=== PATIENT | female | born 1970 | race Caucasian/White ===

== ENCOUNTER → 2018-03-29 10:10 | Outpatient (CLI) | payer MEDICAID, SELFPAY ==
[2018-03-29 12:38] LABS: T4 Free Direct 1.37 ng/dL (0.76-1.46); Thyroid Stim Hormone (TSH) 0.51 uIU/mL (0.358-3.74)
== END ==
PROVIDERS: PCP Internal Medicine
DX: E03.9 Hypothyroidism, unspecified (principal)
CPT/HCPCS: 36415; 84439; 84443

== ENCOUNTER → 2018-11-02 13:52 | Outpatient (CLI) | payer MEDICAID, SELFPAY ==
[2018-11-09 11:29] LABS: HPV Reflexed? NOT INDICATED
--- OUTSIDE RECORDS SUMMARY | 2019-01-07 10:49 | XMS RPT_ITS ---
:1970 Author Organization [facility] Care Team Providers Name Role Phone Nancy Gamboa Attending Unavailable АННА BAILEY Attending Unavailable Cecilia Moody Referring Unavailable Primay Care Physicia, No Primary Care Unavailable AKIRA BOWMAN Attending Unavailable PROBLEMS PROBLEMS DATE TYPE CONDITION / CODE ATTENDING STATUS SOURCE 11/02/2018 Unknown Z12.4 - Encounter Nancy Gamboa Active [place] for screening for [facility] neoplasm of Repository cervix / Z12.4(ICD-10) 03/29/2018 Unknown E03.9 - АННА BAILEY Active [place] Hypothyroidism, [facility] unspecified / Hospital E03.9(ICD-10) Repository PROCEDURES PROCEDURES No Procedure Records FoundRESULTS RESULTS PAP I-G W/RFX HRHPV Collected: 11/02/2018 Status: F Source: SID 11:15 AM [facility] REPOSITORY Order Comment: CYTOLOGY INFORMATION: - CLINICAL INFORMATION: - DATE LMP/MENOPAUSE: IUD/NO LMP GIVEN - COLLECTION VIAL: Thin Prep Vial - ASSEMBLER SEMICONDUCTOR SOURCE: CERVICAL/ENDOCERVICAL - COLLECTION TECHNIQUE: BRUSH/SPATULA Specimen Comment: [id number] Specimen Comment: Source.............Cervix;Endocervix Specimen Comment: Other..............IUD Specimen Comment: No. of containers..01 ThinPrep Vial TYPE CODE TESTS RESULT OUT OF RANGE REFERENCE UNITS LAB L7400.0800 . Normal DIAGN Comment Result Comment: NEGATIVE FOR INTRAEPITHELIAL LESION AND MALIGNANCY. THIS SPECIMEN WAS RESCREENED PART OF OUR CUSTOM [employer] PROGRAM. LAB L7400.0900 . Normal ADEQ Comment Result Comment: Satisfactory for evaluation. No endocervical component is identified. LAB L7400.1400 . Normal PERFORM Comment Result Comment: Анна Martinez, [employer] [facility]) LAB L7400.1500 . Normal QC Comment REV Result Comment: Floridalma Craft, Supervisory [employer] [facility] LAB L7400.2575 . Normal TEST METHOD Comment Result Comment: This liquid based ThinPrep(R) pap test was screened with the use of an image guided system. LAB L7400.2600 . Normal . COMM LAB L7400.2700 . Normal PAPSMR Comment Result Comment: The Pap smear is a screening test designed to aid in the detection of premalignant and malignant conditions of the uterine cervix. It is not a diagnostic procedure and should not be used as the sole means of detecting cervical cancer. Both false-positive and false-negative reports do occur. LAB L7400.2800 . Normal HPV RFLX Comment Result Comment: The HPV DNA reflex criteria were not met with this specimen result therefore, no HPV testing was performed. Performed at: [address] [id number] Marketing Communications Leader: Aminta Browne MD, Phone: [phone] Performed By: #### L7400.0350 #### [facility] (refer to report for specific site) refer to report for address and phone number THYROID STIM HORMONE Collected: 03/29/2018 Status: F Source: SID (TSH) 10:19 AM [facility] [place] TYPE CODE TESTS RESULT OUT OF RANGE REFERENCE UNITS LAB L501.9520 0.358-3.74 uIU/mL Normal TSH 0.51 Performed By: #### L501.9520, L506.0400 #### [facility] [address] [place], [place], [address] T4 FREE DIRECT Collected: 03/29/2018 Status: F Source: [place]ID 10:19 AM [facility] [place] TYPE CODE TESTS RESULT OUT OF RANGE REFERENCE UNITS LAB L506.0400 0.76-1.46 ng/dL Normal T4 FREE 1.37 DIRECT Performed By: #### L501.9520, L506.0400 #### [facility] [address] [place], [address] FREE T4 THYROXINE Collected: 01/05/2018 Status: F Source: [place] 11:32 AM [facility] REPOSITORY TYPE CODE TESTS RESULT OUT OF RANGE REFERENCE UNITS LAB FT4 0.61-1.44 ng/dL FREE Normal T4 THYROXINE 1.09 Performed By: #### TSH, FT4 #### [facility] [address] [place] [address] THYROID STIMULATING Collected: 01/05/2018 Status: F Source: [place] HORMO 11:32 [facility] REPOSITORY TYPE CODE TESTS RESULT OUT OF REFERENCE UNITS RANGE LAB TSH 0.34-5.60 uIU/mL Low THYROID STIMULATING HORMO 0.16 Performed By: #### TSH, FT4 #### [facility] [address] [place] [address] ALLERGIES ALLERGIES No Allergies Records FoundENCOUNTERS ENCOUNTERS ADMIT/DISCHARGE ACCOUNT NUMBER ADMITTING ENCOUNTER LOCATION SOURCE CLASS 11/02/2018 [id number] Ambulatory [facility] ding:LABSPEC Repository 03/29/2018 [id number] Ambulatory [facility] ding:MTLAB Repository 01/05/2018 [id number] Ambulatory .Building:[facility] Repository PAYERS PAYERS ENCOUNTER GUARANTOR PAYER SUBSCRIBER SOURCE 11/02/2018 Bev Primary Bev Sid [id number] Insurance:KATHIE RussoB: [facility] [id number] PLANPolicy Number: Repository [id number]: ([phone] [id number] [phone] (HP) ve Date:[id number] [place] [id number]: 11/02/2018 Secondary NOT GIVENUNK [place] Insurance:SELF PAY [facility] Number: Effective Repository Date:2018-11-02 03/29/2018 Bev Primary Bev Sid [id number] Insurance:KATHIE RussoB: [facility] [id number] PLANPolicy Number: Repository [id number]: [phone] [id number] [phone] (HP) ve Date:[id number] [address] [address]FG: 03/29/2018 Secondary NOT GIVENUNK Sid Insurance:SELF PAY [facility] Number: Effective Repository Date:2018-03-29 01/05/2018 BEV Primary BEV [facility] Insurance:KATHIE DILLON [address] [address]Gij: 330 PLANPolicy Number: Repository [phone] () [id number] ve Date:
== END ==
PROVIDERS: Visit Provider Obstetrics & Gynecology
DX: Z12.4 Encounter for screening for malignant neoplasm of cervix (principal)
CPT/HCPCS: 88175; G0145

== ENCOUNTER → 2018-12-15 15:29 | Outpatient (CLI) | payer MEDICAID, SELFPAY ==
--- NOTE | 2018-12-15 15:34 | BI_ITS ---
MAMMOGRAPHY - BILATERAL SCREENING REASON FOR EXAM: Female, 48 years old. Routine annual screening examination. PERTINENT HISTORY: Aunt with breast cancer. Bilateral breast implants. TECHNIQUE: Digital bilateral breast ivette (3D mammographic acquisition) in the CC and MLO projections. 2-D mediolateral oblique (MLO) and craniocaudad (CC) views of both breasts were obtained. CAD: Full Field Digital Mammography with Computer Added Detection was performed. COMPARISON: Comparison is made with prior study dated July 07, 2017 and July 01, 2016. FINDINGS: Breast Composition: There are scattered areas of fibroglandular density. There are no dominant masses or suspicious calcifications. Stable appearance of the bilateral breast implants. Stable well-defined 8 mm x 6 mm nodule in the axillary region of the right breast suggestive of a small lymph node. No other significant abnormalities are identified. There has been no significant change since the prior study. BI/SCREENING MAMM (CAD), BILAT IMPRESSION: Stable bilateral screening mammogram. Yearly follow-up mammogram recommended. (A) ASSESSMENT CATEGORY: BIRADS Category 2: Benign. A letter regarding these results will be sent to the patient by the facility within 30 days. Approximately 10% of breast cancers are not detected by mammography. A normal mammogram should not delay biopsy of a clinically suspicious abnormality. [id number] Electronically Signed: Joaquín Thorpe, at 9:39 EST , Service support ,
== END ==
PROVIDERS: Family Provider Internal Medicine; PCP Internal Medicine; Referring Provider Obstetrics & Gynecology; Visit Provider Obstetrics & Gynecology
DX: Z12.31 Encounter for screening mammogram for malignant neoplasm of breast (principal)
CPT/HCPCS: 77063; 77067

== ENCOUNTER → 2018-12-30 16:07 | Outpatient (CLI) | payer MEDICAID, SELFPAY ==
[2018-12-30 18:01] LABS: Vitamin D,25 Hydroxy 48.1 ng/mL (29.95-100.01)
[2018-12-30 18:05] LABS: Anion Gap 6 (5-15); BUN 10 mg/dL (7-18); BUN/Creat Ratio 13.9 RATIO (10-20); Calcium,Total 8.4 mg/dL (8.5-10.1); Chloride 109 mmol/L (98-107); Creatinine, Serum 0.72 mg/dL (0.55-1.02); EST Glomerular Filtration Rate 93 mL/min (>60); Est Glom Filt Rate - Afr Amer 112 mL/min (>60); Glucose 75 mg/dL (74-106); Potassium 3.9 mmol/L (3.5-5.1); Sodium Level 142 mmol/L (136-145); T4 Free Direct 1.27 ng/dL (0.76-1.46); Thyroid Stim Hormone (TSH) 0.83 uIU/mL (0.358-3.74)
== END ==
PROVIDERS: Family Provider Internal Medicine; PCP Internal Medicine
DX: E03.9 Hypothyroidism, unspecified (principal); R53.81 Other malaise; R53.83 Other fatigue
CPT/HCPCS: 36415; 80048; 82306; 84439; 84443

== ENCOUNTER → 2019-12-27 12:13 | Outpatient (CLI) | payer MEDICAID, SELFPAY ==
[2019-12-27 15:56] LABS: T4 Free Direct 1.15 ng/dL (0.76-1.46); Thyroid Stim Hormone (TSH) 0.68 uIU/mL (0.358-3.74)
== END ==
PROVIDERS: PCP Internal Medicine; Referring Provider Internal Medicine Endocrinology, Diabetes & Metabolism; Visit Provider Internal Medicine Endocrinology, Diabetes & Metabolism
DX: E03.9 Hypothyroidism, unspecified (principal)
CPT/HCPCS: 36415; 84439; 84443

== ENCOUNTER 2021-08-18 13:28 | Emergency (ER) | payer OTHER, SELFPAY ==
[2021-08-18 13:28] VITALS: BP 134/83; PULSE 72; RESP 18; TEMP 36.6; O2SAT 99; BMI 29.7
[2021-08-18] MEDS: Ondansetron 4 MG/2 ML Vial IV (16:48)
[2021-08-18] MEDS: morphine 8 MG/ML Syringe IV (16:48)
[2021-08-18] MEDS: Ketorolac 15 MG/ML Vial IV (16:55)
--- NOTE | 2021-08-18 17:56 | EDS_ITS ---
HPI History of Present Illness Chief Complaint: Back Informant: patient Onset/Context/Timing Onset: Days Context: Sudden Onset Injury: - (Patient went to the gym. She then went to the chiropractor. She states he adjusted her) Timing: Continuous Quality: Dull, Aching and Throbbing Location: Lumbar, Buttock and Right Leg Current Severity: Moderate Maximum Severity: Severe Worsened by: improves with Movement, Ambulation, Bending and Lifting Relieved by: Nothing Associated Symptoms Associated Symptoms: Radiation to Right Leg and - (No saddle paresthesia or anesthesia); Negative for Numbness, Tingling, Fever, Abdominal Pain, Dysuria, Unable to Ambulate, Unable to Transfer, Urinary Retention, Urinary Incontinence, Constipation and Fecal Incontinence Narrative Narrative: Patient is a 51-year-old woman who presents with right low back pain that radiates in the distribution of L5 nerve root and L4 nerve root. Patient states her knee andre but she states she has a lot of pain. She does not have a foot drop. She denies fever, chills night sweats. She is had no recent dental procedure. She had no recent illness. She is not immune suppressed. She does have a history of hypothyroidism. She denies dysuria, frequency, urgency or hematuria. She denies history of renal ureterolithiasis. Prior similar symptoms: No Recent Illness/Hospitalization: No PFSH PFSH Medical History Back pain Home Medications fluoxetine 20 mg PO DAILY 08/18/21 [History Last Taken Unknown] levothyroxine 137 mcg PO DAILY 08/18/21 [History Last Taken Unknown] naproxen 500 mg PO BID #14 tab 08/18/21 [Rx Last Taken Unknown] oxycodone-acetaminophen 1 tab PO Q6H PRN PRN 3 Days #12 tablet 08/18/21 [Rx Last Taken Unknown] prednisone 60 mg PO DAILY #15 tablet 08/18/21 [Rx Last Taken Unknown] Allergy/AdvReac Type Severity Reaction Status Date / Time No Known Allergies Allergy Verified 08/18/21 16:33 Surgical History no surgical history no surgical history Social History (Updated 08/18/21 @ 18:[address] Sunil Drew MD) household members: none Smoking Status: Never smoker alcohol intake: current alcohol intake frequency: other substance use type: does not use ROS ROS ED Constitutional Constitutional ED: Denies chills, fever(s), subjective, sweats or weight loss Eyes Eyes: Denies blurry vision, change in vision or diplopia ENT ENT ED: Denies ear pain, rhinorrhea or sore throat Cardiovascular Cardiovascular: Denies chest pain, palpitations or racing heartbeat Respiratory/Chest Respiratory/Chest: Denies dyspnea, dyspnea on exertion or sputum Gastrointestinal Gastrointestinal: Denies abdominal pain, diarrhea, melena, nausea or vomiting Genitourinary Genitourinary ED: Denies dysuria, hematuria or urinary frequency Musculoskeletal Musculoskeletal: Reports back pain; Denies arthralgias, myalgias or neck pain Integumentary Denies abscess, Abrasions or rash Neurologic Neurologic: Denies headache(s), paresthesias or weakness Hematologic/Lymphatic Hematologic/Lymphatic: Denies easy bleeding or easy bruising EXAM Physical Exam Const Vital Signs: 08/18/21 13:28 Temperature 97.9 F Temperature Source Temporal Pulse Rate 72 Respiratory Rate 18 Blood Pressure 134/83 H Blood Pressure Mean 100 Pulse Ox 99 Oxygen Delivery Method Room Air Positive well nourished and well developed General Appearance ED: well developed; Negative for NAD or pallor HEENT HEENT Narrative: Head is atraumatic normocephalic. Nares patent. Posterior pharynx unremarkable. Eyes PERRL and EOMs intact bilaterally General Eye ED: Negative for pale conjunctiva or scleral icterus Neck no lymphadenopathy and supple Resp normal respiratory effort and clear to auscultation bilaterally Cardio regular rate, regular rhythm, S1 normal heart sound, S2 normal heart sound and no murmurs GI normal to inspection, nondistended, normoactive bowel sounds, soft to palpation and non-tender Inspection: Negative for abdominal distention Palpation: Negative for hepatomegaly or mass Back/Spine normal to inspection and no thoracic nor lumbar tenderness Back/Spine Narrative: Femoral stretch test is negative. General Back: Negative for CVA tenderness or scar(s) Cervical Spine: Negative for cervical spine tenderness and Negative for paracervical muscle tenderness Thoracic Spine / Upper Back: Negative for paraspinal muscle tenderness Lumbar Spine / Lower Back: straight leg raise positive right at 40 degrees and other (Patient has a positive crossover test.); Negative for straight leg raise negative bilaterally Extremity normal to inspection and no clubbing, cyanosis or edema General Extremety ED: Negative for edema or tenderness General Extremity: Negative for edema Neuro oriented x3 and no sensory deficits noted Neuro Narrative: Normal perianal sensation. Slight decrease sensation over L5 nerve root. EHLs intact and symmetric. Able to walk on heels and toes. Able to perform a 1 legged squat right and left. Sensorium / Orientation: alert Deep Tendon Reflexes: Rt Patellar (L4): 3+, Lt Patellar (L4): 3+, Rt Ankle (S1): 3+ and Lt Ankle (S1): 3+ Deep Tendon Reflexes Back: Rt Patellar (L4): 3+, Lt Patellar (L4): 3+, Rt Ankle (S1): 3+ and Lt Ankle (S1): 3+ Plantar Reflex: Downgoing: bilateral Psych mental status grossly normal Skin no rashes or lesions noted and no wounds General Skin Exam: Negative for jaundice or pallor MDM MDM MDM Narrative Medical decision making narrative: Patient presents with acute back pain. History and physical consistent with sciatica. Patient was medicated with IV Toradol and morphine. She had marked improvement. Is discharged home with prescription for NSAID, Percocet and prednisone. She was instructed to follow- up with her doctor and given specific symptoms to return immediately. Discharge Plan Triage Chief Complaint: Back ED Provider: Sunil Drew Dx/Rx/DC Orders Clinical Impression: Low back pain with right-sided sciatica Instructions: ED Sciatica Prescriptions: New oxycodone-acetaminophen [oxycodone-acetaminophen] 1 TABLET tablet 1 tab PO Q6H PRN PRN (Reason: Pain) 3 Days Qty: 12 RF: 0 naproxen 500 MG tablet 500 mg PO BID Qty: 14 RF: 0 prednisone 20 MG tablet 60 mg PO DAILY Qty: 15 RF: 0 No Action levothyroxine 137 mcg tablet 137 mcg PO DAILY RF: 0 fluoxetine 20 mg capsule 20 mg PO DAILY RF: 0 Primary Care Provider: Cecilia Moody Referrals: Cecilia Moody MD [Primary Care Provider] - 3-5 Days if not improving Activity Restrictions/Additional Instructions: If you have any of the following return to the emergency department immediately: Loss of bowel control Inability to urinate Numbness in the area that you are bottom with touch of bicycle seat Foot drop on the right side or buckling of your knees due to weakness Disposition Disposition: Home, Self Care
[2021-08-18 18:21] VITALS: PULSE 76; RESP 16; O2SAT 97
== END 2021-08-18 18:51 | disposition home or self-care (01) ==
PROVIDERS: Emergency Provider Emergency Medicine; PCP Internal Medicine
DX: M54.41 Lumbago with sciatica, right side (principal); E03.9 Hypothyroidism, unspecified; Z79.52 Long term (current) use of systemic steroids; Z79.1 Long term (current) use of non-steroidal anti-inflammatories (NSAID); Z79.899 Other long term (current) drug therapy
CPT/HCPCS: 99283; A4216; J2405

== ENCOUNTER 2022-08-22 12:29 | Emergency (ER) | payer BC, SELFPAY ==
[2022-08-22 12:30] VITALS: BP 124/81; PULSE 77; RESP 16; TEMP 36.6; O2SAT 99; BMI 28.8
--- NOTE | 2022-08-22 13:24 | EDS_ITS ---
HPI History of Present Illness Chief Complaint: Other, Pain/Inj Informant: patient Narrative Narrative: 52-year-old female with history of sciatica/lumbar strain as well as hypothyroid presenting with worsening neck pain. Is on the right side of her neck. States has been going on for the past 3 to 4 days. Denies any trauma but states she may be slept funny on it. She states she has pain from her right neck that seems to go behind her ear down her shoulder and her lateral neck. It even hurts to swallow but is especially bad when she tries to change position or move her neck. She does have a mild rash on the right but also a little bit on the left side of her neck but she states that she gets splotchy. She has been using topical Voltaren gel. She has also been trying heat. Patient tried [id number] ibuprofen and Tylenol and even an old Flexeril she had with no relief of her symptoms. Initially went to urgent care who did a strep swab since she reported pain when she swallows. Tried to see a massage therapist who wanted to make sure that she was okay before they did any type of treatments. [facility] Medical History Back pain Home Medications diazepam 5 mg tablet (Valium) 5 mg PO TID PRN muscle spasm #14 tabs 08/22/22 [Rx Last Taken Unknown] ibuprofen 600 mg tablet 600 mg PO Q6H PRN PRN Pain Score 1-10/10 #20 tabs 08/22/22 [Rx Last Taken Unknown] Allergy/AdvReac Type Severity Reaction Status Date / Time No Known Allergies Allergy Verified 08/22/22 12:30 Social History household members: none Smoking Status: Never smoker alcohol intake: current alcohol intake frequency: other substance use type: does not use ROS ROS ED Constitutional Constitutional ED: Denies chills or fever(s) Eyes Eyes: Denies blurry vision or change in vision ENT ENT ED: Denies rhinorrhea or sore throat Cardiovascular Cardiovascular: Denies chest pain Respiratory/Chest Respiratory/Chest: Denies cough or dyspnea Gastrointestinal Gastrointestinal: Denies abdominal pain or vomiting Musculoskeletal Musculoskeletal: Reports neck pain; Denies back pain Integumentary Denies Abrasions or rash Neurologic Neurologic: Denies headache(s), paresthesias or weakness Psychiatric Psychiatric: Denies anxiety EXAM Physical Exam Const Vital Signs: 08/22/22 12:30 08/22/22 13:08 08/22/22 15:26 Temperature 97.9 F Temperature Source Temporal Pulse Rate 77 Respiratory Rate 16 16 Respiratory Effort Normal Respiratory Pattern Normal Blood Pressure 124/81 H Blood Pressure Mean 95 Pulse Ox 99 Oxygen Delivery Method Room Air Positive well nourished and well developed General Appearance ED: well developed and NAD HEENT Reports TM's clear and moist mucous membranes Negative for trauma or tenderness Tympanic Membrane ED: Yes TM's clear Eyes PERRL and EOMs intact bilaterally Neck supple and no JVD Neck Narrative: Significant tenderness palpation over the lateral neck most pronounced at the sternocleidomastoid. Decreased range of motion on passive and active range of motion secondary to pain. It is all localized to the right. No midline tenderness appreciated. Chest Wall inspection of chest normal Resp normal respiratory effort and clear to auscultation bilaterally Cardio regular rate, regular rhythm and no murmurs GI normal to inspection, nondistended, normoactive bowel sounds and non-tender Back/Spine Back/Spine Narrative: Tenderness to palpation over the right trapezius Cervical Spine: Negative for cervical spine tenderness Thoracic Spine / Upper Back: Negative for thoracic spinal tenderness Lumbar Spine / Lower Back: Negative for lumbar spinal tenderness Extremity normal to inspection General Extremety ED: Negative for edema or tenderness General Extremity: Negative for edema Neuro oriented x3, CN's II-XII intact bilaterally and no sensory deficits noted Motor Exam: strength 5/5 throughout; Negative for general weakness Psych mental status grossly normal Skin no wounds and skin turgor normal Skin Narrative: Patient has scattered flat erythematous rash to her right neck, in front of her right ear and a little bit in the anterior left neck. Appears most consistent with a contact dermatitis. No vesicular lesions appreciated. Negative Nikolsky sign. It is blanching. MDM MDM MDM Narrative Medical decision making narrative: Patient is evaluated for atraumatic neck pain. It appears to be highly muscle skeletal I suspect has a component of torticollis. I do not think any imaging is indicated. No midline tenderness. I do not think this is meningitis. She does not have any neurologic symptoms. Patient is given a dose of IM morphine and diazepam. She has improvement of her symptoms with this. She be discharged home with a short course of NSAIDs as well as diazepam. Counseled return precautions. Patient verbalizes given understands plan. Discharge Plan Triage Chief Complaint: Other, Pain/Inj ED Provider: Lelia Mckeon Dx/Rx/DC Orders Clinical Impression: Torticollis, acute, Muscle spasms of neck Instructions: ED Neck Spasm, No Trauma Prescriptions: New diazepam [Valium] 5 mg tablet 5 mg PO TID PRN (Reason: muscle spasm) Qty: 14 0RF ibuprofen 600 mg tablet 600 mg PO Q6H PRN PRN (Reason: Pain Score 1-10/10) Qty: 20 0RF Primary Care Provider: Cecilia Moody Referrals: Cecilia Moody MD [Primary Care Provider] - Disposition Disposition: Home, Self Care Discharge Date/Time: 08/22/22 15:27
[2022-08-22] MEDS: Morphine 4 MG/ML Syringe 6 MG IM (13:37)
[2022-08-22] MEDS: diazePAM 5 MG Tablet PO (13:38)
[2022-08-22 15:26] VITALS: RESP 16
== END 2022-08-22 15:27 | disposition home or self-care (01) ==
PROVIDERS: Emergency Provider Emergency Medicine; PCP Internal Medicine; Visit Provider Emergency Medicine
DX: M43.6 Torticollis (principal); M62.838 Other muscle spasm
CPT/HCPCS: 96372; 99282